=== PATIENT | female | born 1950 | race Caucasian/White ===

== ENCOUNTER 2017-03-20 06:48 | Day surgery (SDC) | payer MEDICARE, OTHER ==
[~2017-03-20] VITALS: Ht 149.9 cm; Wt 77.1 kg
[~2017-03-20 06:48] MED LIST: AMLO5TAB2 PO; DIVA250T3 PO; LOSA100T27 PO; OMEP20CA74 PO; PRAV20TA3 PO
[2017-03-20] MEDS ORDERED: IOHEXOL 350 MG/ML 100ML IJ ONE (07:12)
[2017-03-20] MEDS ORDERED: LIDOCAINE 2%HCL (LOCAL ANESTH.) INJ 20ML MDV ONE (07:12)
[2017-03-20] MEDS ORDERED: MIDAZOLAM HCL 1MG/1ML-2 ML VIAL ONE (07:33)
[2017-03-20] MEDS ORDERED: fentaNYL CITRATE 100 MCG/2 ML VL ONE (07:34)
[2017-03-20] MEDS ORDERED: VERAPAMIL 2.5MG/ML INJ 2ML VIAL IV ONE (07:34)
[2017-03-20] MEDS ORDERED: ANGIOMAX 250 MG VIAL IV ONE (07:34)
[2017-03-20] MEDS ORDERED: diphenhdrAMINE HCL 50 MG/1 ML VL ONE (07:35)
[2017-03-20] MEDS ORDERED: SODIUM CHL 0.9% 0 ML ONE (07:35)
[2017-03-20] MEDS ORDERED: methylPREDNISolone SOD SUCC 125 MG/2 ML VL ONE (07:36)
[2017-03-20] MEDS ORDERED: FAMOTIDINE (10MG/ML) 2ML VL IV ONE (08:16)
== END 2017-03-20 11:08 | disposition home or self-care (01) ==
LOC: CATH 06:48
PROVIDERS: ATTEND Internal Medicine
DX: I99.8 Other disorder of circulatory system (principal)
CPT/HCPCS: 93458; C1760; C1769; C1894; J1200; J1644; J2250; J2930; J3010; J3490; J7030; Q9967; 99152; 99153